=== PATIENT | female | born 1990 | race Caucasian/White ===

== ENCOUNTER 2021-08-30 13:01 | Emergency (ER) | payer OTHER ==
[~2021-08-30] VITALS: Ht 170.2 cm; Wt 76.4 kg
[2021-08-30 16:04] VITALS: BP 111/71
== END 2021-08-30 16:33 | disposition home or self-care (01) ==
LOC: EMS 13:11
DX: M72.2 Plantar fascial fibromatosis (principal)
CPT/HCPCS: 99283